=== PATIENT | female | born 1975 | race Caucasian/White ===

== ENCOUNTER 2016-12-17 09:22 | Emergency (ER) | payer OTHER ==
[2016-12-17 09:27] VITALS: BP 129/76; PULSE 73; RESP 16; TEMP 97.5
--- NOTE | 2016-12-17 10:05 | ED ---
General Adult HPI - General Chief complaint: Eye Problems Stated complaint: Left eye irritation Time Seen by Provider: 12/17/16 09:29 Source: patient, RN notes reviewed Mode of arrival: ambulatory Limitations: no limitations - History of Present Illness Initial comments: Patient 41-year-old female who presents emergency room today with a chief complaint of increased irritation to the left eye. She does admit that week ago she had similar symptoms but was both eyes. States she is some old drops that she had. She does admit that symptoms improved. She states she woke up yesterday noticed some increased redness and irritation begin to the left eye. She denies any injury or trauma. She does admit that she's had some blurry vision off and on with watering. She denies any other complaints or associated symptoms. She does admit that she called her gas welding machine operator because she is out of town and was prescribed a anti-inflammatory drop. She states she came here to the emergency room she was unsure if she needed antibiotic. Patient denies any recent fever, chills, shortness of breath, chest pain, back pain, abdominal pain, nausea or vomiting, numbness or tingling, dysuria or hematuria, constipation or diarrhea, headaches, or any other complaints. - Related Data Previous Rx's Medication Instructions Recorded Ofloxacin 0.3% Ophth Soln [Ocuflox 1 - 2 drops LEFT EYE QID 10 Days 12/17/16 Ophth Soln] Allergies Allergy/AdvReac Type Severity Reaction Status Date / Time Penicillins Allergy Rash/Hives Verified 12/17/16 09:53 Review of Systems ROS Statement: Those systems with pertinent positive or pertinent negative responses have been documented in the HPI. ROS Other: All systems not noted in ROS Statement are negative. Past Medical History Past Medical History: No Reported History History of Any Multi-Drug Resistant Organisms: None Reported Past Surgical History: No Surgical Hx Reported Past Psychological History: No Psychological Hx Reported Smoking Status: Never smoker Past Alcohol Use History: Occasional Past Drug Use History: None Reported General Exam - General Exam Comments Initial Comments: General: The patient is awake and alert, in no distress, and does not appear acutely ill. Eye: Pupils are equal, round and reactive to light, extra-ocular movements are intact. No nystagmus. Increased redness irritation to the left conjunctiva. Watery discharge. Lids inverted no foreign body. Ears, nose, mouth and throat: There are moist mucous membranes and no oral lesions. Neck: The neck is supple, there is no tenderness or JVD. Cardiovascular: There is a regular rate and rhythm. No murmur, rub or gallop is appreciated. Respiratory: Lungs are clear to auscultation, respirations are non-labored, breath sounds are equal. No wheezes, stridor, rales, or rhonchi. Musculoskeletal: Normal ROM, no tenderness. Strength 5/5. Sensation intact. Pulses equal bilaterally 2+. Neurological: A&O x 3. CN II-XII intact, There are no obvious motor or sensory deficits. Coordination appears grossly intact. Speech is normal. Skin: Skin is warm and dry and no rashes or lesions are noted. Psychiatric: Cooperative, appropriate mood & affect, normal judgment. Limitations: no limitations Course Vital Signs 12/17/16 09:24 Temperature 97.5 F L Pulse Rate 73 Respiratory 16 Rate Blood Pressure 129/76 O2 Sat by Pulse 99 Oximetry Procedures - Procedures Initial comment: Patient's left eye was stained with forcing checked underneath Douglas lamp showed no sign of corneal abrasion. No foreign bodies. Patient's left eye checked with pressure was 13. Medical Decision Making - Medical Decision Making Patient will be started on antibiotic drops to cover for conjunctivitis. Advised follow-up with gas welding machine operator over the next 2 days. Advised return here to emergency room if any symptoms increase or worsen or for any other concerns. Disposition Clinical Impression: Acute conjunctivitis of left eye Disposition: HOME SELF-CARE Condition: Good Instructions: Conjunctivitis (ED) Additional Instructions: Please use antibiotic drops as prescribed. Please follow-up with gas welding machine operator over the next 2 days. Please return to emergency room if any symptoms increase or worsen or for any other concerns. Prescriptions: Ofloxacin 0.3% Ophth Soln [Ocuflox Ophth Soln] 1 - 2 drops LEFT EYE QID 10 Days Referrals: None,Stated [Primary Care Provider] - 1-2 days Time of Disposition: 10:03
== END 2016-12-17 10:15 | disposition home or self-care (01) ==
LOC: EC 09:22
DX: H10.32 Unspecified acute conjunctivitis, left eye (principal); Z88.0 Allergy status to penicillin
CPT/HCPCS: 99283